=== PATIENT | male | born 1995 | race Caucasian/White ===

== ENCOUNTER 2017-04-02 09:33 | Inpatient (IN) | payer OTHER ==
[~2017-04-02] VITALS: Ht 177.8 cm; Wt 102.1 kg
[2017-04-02] VITALS (9 sets, daily range): BP systolic 136–158; BP diastolic 56–92
--- OUTSIDE RECORDS SUMMARY | 2017-04-02 10:01 | XMS REPORT ---
Author Walter Beckham Organization eClinical[employer] Address Unknown Phone Unavailable Care Team Providers Care Associate Professor Of Geography Name Role Phone Walter Falcon CP Unavailable Allergies, Adverse Reactions, Alerts Substance Reaction Event Type N.K.D.A. Info Not Available Non Drug Allergy Problems Problem Type Condition Code Onset Dates Condition Status Assessment Diabetes mellitus without mention of complication, type I [ juvenile type], not stated as uncontrolled 250.01 Active Problem Diabetes mellitus without mention of complication, type I [juvenile type], not stated as uncontrolled 250.01 Active Medications Medication Code System Code Instructions Start Date End Date Status Dosage OneTouch Delica Lancets NDC 0 1 four times daily December 16, 2012 hold til patient calls Glucagon (rDNA) [facility] [address]-11 1 mg Injection 1 daily May 27, 2014 as directed Pen [place] 10/03" NDC 0 31G X 8 MM 1 four times daily August 16, 2011 not defined NovoLog [facility] [address]-45 100 UNIT/ML Subcutaneous 30u, 36u, 38u Solution with meals Feb 11, 2013 Prescribed by EH ByrdCSupervised by Dr Rusty Sanabria OneTouch Ultra Blue NDC 0 In Vitro 1 four times daily November 13, 2013 per Walter Falcon PA-C supervised under Rusty Sanabria. Levemir [facility] [address]-07 100 UNIT/ML Subcutaneous 65 units in each leg at bedtime August 29, 2012 not defined Procedures Procedure Coding System Code Date Office Visit, Est Pt., Level 4 CPT-4 96004 August 24, 2014 GLYCATED HEMOGLOBIN TEST CPT-4 48374 August 24, 2014 Vital Signs Date/Time: August 24, 2014 Blood Pressure Systolic 120 mm Hg Weight 241 lbs Height 70 in BMI 34.58 Index Respiratory Rate 18 /min Cardiac Monitoring Heart Rate 80 /min Blood Pressure Diastolic 74 mm Hg BMIPercentile 98.9 % Wt Percentile 98.94 % Results No Known Results Summary Purpose eClinicalWorks Submission
--- OUTSIDE RECORDS SUMMARY | 2017-04-02 10:03 | XMS REPORT ---
Author Walter Beckham [facility] eClinicalWorks Address Unknown Phone Unavailable Care Team Providers Care Director Employee Safety And Health Name Role Phone Walter Falcon CP Unavailable Allergies, Adverse Reactions, Alerts Substance Reaction Event Type N.K.D.A. Info Not Available Non Drug Allergy Problems Problem Type Condition Code Onset Dates Condition Status Problem Diabetes mellitus without mention of complication, type I [juvenile type], not stated as uncontrolled 250.01 Active Assessment Diabetes type 1, uncontrolled E10.65 Active Problem Diabetes type 1, uncontrolled E10.65 Active Medications Medication Code System Code Instructions Start Date End Date Status Dosage NovoLog [facility] [address]-03 100 UNIT/ML Subcutaneous 30u, 36u, 38u Solution with meals Feb 11, 2013 Prescribed by GOMEZ Byrd-CSupervised by Dr Rusty Og [facility] [address]-56 100 UNIT/ML Subcutaneous 65 units in each leg at bedtime August 29, 2012 not defined BD Insulin Syringe [facility] 8290-006370 30G X 1/2 sub-q four times daily Dec as directed Glucagon (rDNA) [facility] [address]-92 1 mg Injection unconscious low blood sugar May 03, 2015 as directed OneTouch Delica Lancets NDC 0 1 four times daily December 16, 2012 [facility] patient calls Glucagon (rDNA) [facility] [address]-37 1 mg Injection 1 daily May 27, 2014 as directed OneTouch Verio NDC 0 1 In Vitro 4 times daily May 03, 2015 as directed Pen [place] 5/16" NDC 0 31G X 8 MM 1 four times daily August 16, 2011 not defined Procedures Procedure Coding System Code Date ASSAY THYROID STIM HORMONE CPT-4 96934 May 03, 2015 ASSAY OF URINE CREATININE CPT-4 01980 May 03, 2015 GLYCATED HEMOGLOBIN TEST IH CPT-4 59915 May 03, 2015 LIPID PANEL SO CPT-4 07149 May 03, 2015 MICROALBUMIN, QUANTITATIVE CPT-4 36744 May 03, 2015 Office Visit, Est Pt., Level 4 CPT-4 61598 May 03, 2015 COMPREHEN METABOLIC PANEL CPT-4 82048 May 03, 2015 Vital Signs Date/Time: May 03, 2015 Blood Pressure Systolic 120 mm Hg Ht Percentile 69.76 % Weight 257 lbs Height 71 in BMI 35.84 Index Respiratory Rate 16 /min Cardiac Monitoring Heart Rate 66 /min Blood Pressure Diastolic 72 mm Hg BMIPercentile 99.06 % Wt Percentile 99.42 % Results No Known Results Summary Purpose eClinicalWorks Submission
--- OUTSIDE RECORDS SUMMARY | 2017-04-02 10:03 | XMS REPORT ---
Author Author Walter Falcon Organization [employer] Address Unknown Phone Unavailable Care Team Providers Care Instructor Hairspring Name Role Phone Walter Falcon CP Unavailable Allergies No Known Allergies Problems Problem Type Condition Code Onset Dates Condition Status Problem Diabetes type 1, uncontrolled E10.65 Active Problem Diabetes mellitus without mention of complication, type I [juvenile type], not stated as uncontrolled 250.01 Active Problem Proteinuria R80.9 Active Medications Medication Code System Code Instructions Start Date End Date Status Dosage Humalog [facility] [address]-06 100 UNIT/ML Subcutaneous Prescribed by Walter Falcon PA-C. 30u, 36u, 38u with meals Results No Known Results Summary Purpose eClinicalWorks Submission
--- OUTSIDE RECORDS SUMMARY | 2017-04-02 10:03 | XMS REPORT ---
Author Walter Beckham [facility] eClinicalWorks Address Unknown Phone Unavailable Care Team Providers Care Coin Machine Supervisor Name Role Phone Walter Falcon CP Unavailable Allergies, Adverse Reactions, Alerts Substance Reaction Event Type N.K.D.A. Info Not Available Non Drug Allergy Problems Problem Type Condition ICD-9 Code Onset Dates Condition Status Assessment Diabetes [...] December 16, 2012 hold til patient calls Pen [place] 10/03" NDC 0 31G X 8 MM 1 four times daily August 16, 2011 not defined OneTouch Ultra Test [facility] [id number] TEST BLOOD FOUR TIMES A DAY NovoLog [facility] [address]-69 100 UNIT/ML Subcutaneous 30u, 36u, 38u Solution with meals Feb 11, 2013 Prescribed by EH ByrdCSupervised by Dr Rusty Og [facility] [address]-23 100 UNIT/ML Subcutaneous 65 units in each leg at bedtime August 29, 2012 not defined Glucagon (rDNA) [facility] [address]-50 1 mg Injection 1 daily May 27, 2014 as directed OneTouch Ultra Blue NDC 0 In Vitro 1 four times daily November 13, 2013 per Walter Falcon PA-C supervised under Rusty Sanabria. Procedures Procedure Coding System Code Date Office Visit, Est Pt., Level 4 CPT-4 82329 December 07, 2014 GLYCATED HEMOGLOBIN TEST CPT-4 77735 December 07, 2014 Vital Signs Date/Time: December 07, 2014 Blood Pressure Systolic 120 mm Hg Weight 238 lbs Height 70 in BMI 34.15 Index Respiratory Rate 16 /min Cardiac Monitoring Heart Rate 72 /min Blood Pressure Diastolic 60 mm Hg BMIPercentile 98.67 % Wt Percentile 98.74 % Results No Known Results Summary Purpose eClinicalWorks Submission
--- OUTSIDE RECORDS SUMMARY | 2017-04-02 10:03 | XMS REPORT ---
Author Author Walter Falcon Organization [employer] Address Unknown Phone Unavailable Care Team Providers Care Relay Engineer Name Role Phone Walter Falcon CP Unavailable Allergies No Known Allergies Problems Problem Type Condition Code Onset Dates Condition Status Problem Diabetes type 1, uncontrolled E10.65 Active Problem Diabetes mellitus without mention of complication, type I [juvenile type], not stated as uncontrolled 250.01 Active Problem Proteinuria R80.9 Active Assessment Proteinuria R80.9 Active Medications Medication Code System Code Instructions Start Date End Date Status Dosage Lisinopril [facility] [address]-43 2.5 MG Orally Once a day May 24, 2015 1 tablet Results No Known Results Summary Purpose eClinicalWorks Submission
--- OUTSIDE RECORDS SUMMARY | 2017-04-02 10:03 | XMS REPORT ---
Author Author Walter Falcon Organization [employer] Address Unknown Phone Unavailable Care Team Providers Care Laboratory Miller Name Role Phone Walter Falcon CP Unavailable Allergies No Known Allergies Problems Problem Type Condition Code Onset Dates Condition Status Problem Diabetes type 1, uncontrolled E10.65 Active Problem Diabetes mellitus without mention of complication, type I [juvenile type], not stated as uncontrolled 250.01 Active Problem Proteinuria R80.9 Active Medications No Known Medications Results No Known Results Summary Purpose eClinicalWorks Submission
--- OUTSIDE RECORDS SUMMARY | 2017-04-02 10:03 | XMS REPORT ---
Author Author Walter Falcon Organization eClinicalWorks Address Unknown Phone Unavailable Care Team Providers Care Construction Job Titles Name Role Phone Walter Falcon CP Unavailable Allergies No Known Allergies Problems Problem Type Condition ICD-9 Code Onset Dates Condition Status Problem Diabetes mellitus without mention of complication, type I [juvenile type], not stated as uncontrolled 250.01 Active Medications Medication Code System Code Instructions Start Date End Date Status Dosage BD Insulin Syringe [facility] [id number] 30G X 1/2" 0.5 ML sub-q four times daily Dec 30, 2014 as directed Results No Known Results Summary Purpose eClinicalWorks Submission
--- OUTSIDE RECORDS SUMMARY | 2017-04-02 10:03 | XMS REPORT ---
Author Author Walter Falcon Organization eClinicalWorks Address Unknown Phone Unavailable Care Team Providers Care Lathe Mechanic Name Role Phone Walter Falcon Unavailable Allergies No Known Allergies Problems Problem Type Condition Code Onset Dates Condition Status Problem Diabetes type 1, uncontrolled E10.65 Active Problem Diabetes mellitus without mention of complication, type I [juvenile type], not stated as uncontrolled 250.01 Active Problem Proteinuria R80.9 Active Medications Medication Code System Code Instructions Start Date End Date Status Dosage Levemir FlexTouch [facility] [address]-76 100 UNIT/ML Subcutaneous once daily. 65 units in each leg at bedtime Dec 31, 2015 130 units Darion Microlet Lancets [facility] [address]-95 1 subcutaneous four times daily Dec 31, 2015 to check blood sugars Glucagon (rDNA) [facility] [address]-45 1 MG Injection for severe hypoglycemia May 27, 2014 as directed NovoLog Flexpen [facility] [address]-75 100 UNIT/ML Subcutaneous three times daily with meals Dec 31, 2015 up to 40 units Darion Contour Next Test [facility] [address]-77 1 In Vitro four times daily Dec 31, 2015 to check blood sugars Results No Known Results Summary Purpose eClinicalWorks Submission
--- OUTSIDE RECORDS SUMMARY | 2017-04-02 10:03 | XMS REPORT ---
Author Author Walter Falcon [facility] eClinicalWorks Address Unknown Phone Unavailable Care Team Providers Care Tannery Gummer Name Role Phone Walter Falcon CP Unavailable Allergies, Adverse Reactions, Alerts Substance Reaction Event Type N.K.D.A. Info Not Available Non Drug Allergy Problems Problem Type Condition ICD-9 Code Onset Dates Condition Status Problem Other specified counseling V65.49 Inactive Problem Need for prophylactic vaccination and inoculation, Influenza V04.81 Inactive Problem Diabetes mellitus without mention of complication, type I [juvenile type], not stated as uncontrolled 250.01 Active Assessment Diabetes mellitus without mention of complication, type I [ juvenile type], not stated as uncontrolled 250.01 Active Assessment Flu vaccine need V04.81 Active Medications Medication Code System Code Instructions Start Date End Date Status Dosage Glucagon (rDNA) [facility] [address]-97 1 mg Injection 1 daily May 27, 2014 as directed OneTouch Ultra Blue NDC 0 In Vitro 1 four times daily November 13, 2013 per Walter Falcon PA-C supervised under Rusty Sanabria. OneTouch Delica Lancets NDC 0 1 four times daily December 16, 2012 hold til patient calls NovoLog [facility] [address]-14 100 UNIT/ML Subcutaneous 30u, 36u, 38u Solution with meals Feb 11, 2013 Prescribed by EH ByrdCSupervised by Dr Rusty Sanabria Pen [place] 5/16" NDC 0 31G X 8 MM 1 four times daily August 16, 2011 [place] [address]-80 100 UNIT/ML Subcutaneous 65 units in each leg at bedtime August 29, 2012 not defined Procedures Procedure Coding System Code Date VENIPUNCT, ROUTINE* CPT-4 25706 May 27, 2014 ASSAY OF URINE CREATININE CPT-4 52021 May 27, 2014 GLYCATED HEMOGLOBIN TEST IH CPT-4 87114 May 27, 2014 Office Visit, Est Pt., Level 4 CPT-4 78522 May 27, 2014 MICROALBUMIN, QUANTITATIVE CPT-4 32836 May 27, 2014 FLU VACCINE NO PRESERV 3 & > CPT-4 47911 May 27, 2014 IMMUNIZATION ADMIN CPT-4 34291 May 27, 2014 Vital Signs Date/Time: May 27, 2014 Blood Pressure Systolic 130 mm Hg Weight 243 lbs Height 70 in BMI 34.86 Index Respiratory Rate 18 /min Cardiac Monitoring Heart Rate 78 /min Blood Pressure Diastolic 72 mm Hg BMIPercentile 99.02 % Wt Percentile 99.06 % Results No Known Results Immunizations Vaccine Administration Date Influenza (split), 3 yrs and above May 27, 2014 Summary Purpose eClinicalWorks Submission
--- OUTSIDE RECORDS SUMMARY | 2017-04-02 10:03 | XMS REPORT ---
Author Author Walter Falcon [facility] Address [address] [id number] Care Team Providers Care Power Transformer Repair Supervisor Name Role Phone Walter Falcon Unavailable PROBLEMS Type Condition ICD9-CM Code [id number] Code Onset Dates Condition Status SNOMED Code Problem Proteinuria R80.9 Active 99648419 Problem Diabetes type 1, uncontrolled E10.65 Active 338811089 ALLERGIES Unknown Allergies SOCIAL HISTORY No smoking Hx information available PLAN OF CARE VITAL SIGNS MEDICATIONS Medication Instructions Dosage Frequency Start Date End Date Duration Status Lisinopril 2.5 MG Orally Once a day 1 tablet 24h May, Apr, 30 days Active RESULTS No Results PROCEDURES No Known procedures IMMUNIZATIONS No Known Immunizations
[2017-04-02] MEDS ORDERED: NS IV 1000 ML 1,000 ML IV ONE (10:04)
[2017-04-02] MEDS ORDERED: NS IV 1000 ML 1,000 ML IV STA (10:04)
--- OUTSIDE RECORDS SUMMARY | 2017-04-02 10:05 | XMS REPORT ---
Author Author Walter Falcon Organization eClinicalWorks Address Unknown Phone Unavailable Care Team Providers Care Online Marketing Specialist Name Role Phone Walter Falcon CP Unavailable Allergies No Known Allergies Problems Problem Type Condition Code Onset Dates Condition Status Problem Diabetes mellitus without mention of complication, type I [juvenile type], not stated as uncontrolled 250.01 Active Medications No Known Medications Results No Known Results Summary Purpose [employer] Submission
--- OUTSIDE RECORDS SUMMARY | 2017-04-02 10:05 | XMS REPORT ---
Author Author Walter Falcon [facility] Address [address] [id number] Care Team Providers Care Structural Layout Worker Name Role Phone Walter Falcon Unavailable PROBLEMS Type Condition ICD9-CM Code [id number] Code Onset Dates Condition Status SNOMED Code Problem Proteinuria R80.9 Active 30002801 Problem Diabetes type 1, uncontrolled E10.65 Active 542511552 ALLERGIES Unknown Allergies SOCIAL HISTORY No smoking Hx information available PLAN OF CARE VITAL SIGNS MEDICATIONS Medication Instructions Dosage Frequency Start Date End Date Duration Status NovoLog 100 UNIT/ML Subcutaneous three times daily with meals 30-40 units 30 days Active RESULTS No Results PROCEDURES No Known procedures IMMUNIZATIONS No Known Immunizations
--- OUTSIDE RECORDS SUMMARY | 2017-04-02 10:05 | XMS REPORT ---
Author Author Walter Falcon Organization [employer]Works Address Unknown Phone Unavailable Care Team Providers Care Ux Developer Name Role Phone Walter Falcon CP Unavailable [...]
--- OUTSIDE RECORDS SUMMARY | 2017-04-02 10:05 | XMS REPORT ---
Author Author Walter Falcon Organization [employer] Address Unknown Phone Unavailable Care Team Providers Care Rail Switch Operator Name Role Phone Walter Falcon Unavailable Allergies [...]
--- OUTSIDE RECORDS SUMMARY | 2017-04-02 10:05 | XMS REPORT ---
Author Author Walter Falcon Organization [employer]Works Address Unknown Phone Unavailable Care Team Providers Care Cattle Manager Name Role Phone Walter Falcon CP Unavailable Allergies No Known Allergies Problems Problem Type Condition Code Onset Dates Condition Status Problem Diabetes mellitus without mention of complication, type I [juvenile type], not stated as uncontrolled 250.01 Active Problem Diabetes type 1, uncontrolled E10.65 Active Medications No Known Medications Results No Known Results Summary Purpose eClinicalWorks Submission
[2017-04-02 10:10] LABS: BASOPHILS % (AUTO) 0 % (0-10); EOSINOPHILS % (AUTO) 0 % (0-10); LYMPHOCYTES # (AUTO) 0.8 X 10^3 (1.0-4.0); LYMPHOCYTES % (AUTO) 4 % (12-44); MEAN CORPUSCULAR HEMOGLOBIN 28 PG (25-34); MEAN CORPUSCULAR HGB CONC 34 G/DL (32-36); MEAN CORPUSCULAR VOLUME 80 FL (80-99); MEAN PLATELET VOLUME 12.3 FL (7.4-10.4); MONOCYTES # (AUTO) 0.7 X 10^3 (0.0-1.0); MONOCYTES % (AUTO) 3 % (0-12); NEUTROPHILS # (AUTO) 20.7 X 10^3 (1.8-7.8); NEUTROPHILS % (AUTO) 93 % (42-75); PLATELET COUNT 433 10^3/uL (130-400); RED BLOOD COUNT 6.15 10^6/uL (4.35-5.85); RED CELL DISTRIBUTION WIDTH 13.5 % (10.0-14.5); WHITE BLOOD COUNT 22.2 10^3/uL (4.3-11.0)
[2017-04-02] MEDS ORDERED: ONDANSETRON 4 MG/2 ML (SDV) Z0FRAN IVP ONE (10:15)
--- NOTE | 2017-04-02 10:17 | ED Abdominal Pain ---
General Stated Complaint: VOMITING,TYPE 1 DIABETIC Source of Information: Patient Exam Limitations: No Limitations History of Present Illness Time Seen By Provider: 10:15 Initial Comments Patient presents to ER by private conveyance with chief complaint of upper gastric abdominal pain, nausea and vomiting intractable. This started yesterday and has gotten worse today. He is not ill keep any fluids down. He has been drinking Gatorade this morning. He has a history of diabetes type 1 for which she uses about 3536 units NovoLog per meal and 60 units of Levemir in each leg daily. He is not taking any other medications or have any other significant medical history. He denies any surgical history of his abdomen. He is not having any diarrhea had a bowel movement yesterday which was regular and formed without blood. Is on no blood in his vomitus. He has had no shortness of breath cough, chest pain, upper respirations symptoms. He took his NovoLog this morning just prior to coming to the ER. He says his blood sugar was 4:30 6G Atty. just to the use of Gatorade. He is not taking his blood sugar yesterday. His last alcoholic drink [facility] about [facility] [place] [facility] [employer] [facility] He thinks the reason he is having abdominal pain and nausea vomiting is likely due to food or alcohol poisoning. He denies ever having DKA in the past. Allergies and Home Medications Allergies Coded Allergies: No Known Drug Allergies (Unverified , 04/02/17) Review of Systems Constitutional: No chills, No diaphoresis, No fever, No malaise EENTM: No Symptoms Reported Respiratory: Denies Cough, Denies Shortness of Air Cardiovascular: Denies Chest Pain, Denies Edema, Denies Lightheadedness Gastrointestinal: See HPI, Denies Abdomen Distended, Abdominal Pain, Denies Constipated, Denies Diarrhea, Nausea, Poor Fluid Intake, Vomiting Genitourinary: Denies Burning, Denies Discharge Musculoskeletal: No back pain, No joint pain Skin: No pruritus, No rash Psychiatric/Neurological: Denies Headache, Denies Numbness Past Ehqisxb-Lhoitr-Gnhpox Hx Patient Social History Alcohol Use: Occasionally Uses (last alcoholic drink was a day and a half ago.) Alcohol Beverage of Choice: Cheap Liquor (multiple to many to remember.) Recreational Drug Use: No Smoking Status: Never a Smoker Recent Foreign Travel: No Contact w/Someone Who Travel: No Physical Exam Vital Signs VS - Last 72 Hours, by Label 04/02/17 09:45 Temp 97.0 Pulse 86 Resp 14 B/P (MAP) 156/96 Pulse Ox 98 O2 Delivery Room Air Capillary Refill : General Appearance: WD/WN, mild distress HEENT: PERRL/EOMI, pharynx normal (oral mucosa is dry) Neck: non-tender, supple, normal inspection Respiratory: chest non-tender, lungs clear, normal breath sounds Cardiovascular: normal peripheral pulses, regular rate, rhythm, no edema Peripheral Pulses: 2+ Dorsalis Pedis (R), 2+ Left Dors-Pedis (L), 2+ Radial Pulses (R), 2+ Radial Pulses (L) Gastrointestinal: normal bowel sounds, soft, tenderness (epigastric region with negative for Palmer sign.) Extremities: normal range of motion, non-tender, normal inspection, normal capillary refill Neurologic/Psychiatric: alert, normal mood/affect, oriented x 3 Skin: normal color, warm/dry Focused Exam Evaluation Lactate Level Laboratory Tests 04/02/17 10:04: Lactic Acid Level 3.43*H Lactic Acid Level Laboratory Tests Test 04/02/17 10:04 Lactic Acid Level 3.43 MMOL/L (0.50-2.00) *H Progress/Results/Core Measures Results/Orders Lab Results Laboratory Tests Test 04/02/17 09:53 04/02/17 09:56 04/02/17 10:04 04/02/17 10:21 Range/Units Glucometer 496 *H 70-110 MG/DL White Blood Count 22.2 H 4.3-11.0 10^3/uL Red Blood Count 6.15 H 4.35-5.85 10^6/uL Hemoglobin 16.9 13.3-17.7 G/DL Hematocrit 49 40-54 % Mean Corpuscular Volume 80 80-99 FL Mean Corpuscular Hemoglobin 28 25-34 PG Mean Corpuscular Hemoglobin Concent 34 32-36 G/DL Red Cell Distribution Width 13.5 10.0-14.5 % Platelet Count 433 H 130-400 10^3/uL Mean Platelet Volume 12.3 H 7.4-10.4 FL Neutrophils (%) (Auto) 93 H 42-75 % Lymphocytes (%) (Auto) 4 L 12-44 % Monocytes (%) (Auto) 3 0-12 % Eosinophils (%) (Auto) 0 0-10 % Basophils (%) (Auto) 0 0-10 % Neutrophils # (Auto) 20.7 H 1.8-7.8 X 10^3 Lymphocytes # (Auto) 0.8 L 1.0-4.0 X 10^3 Monocytes # (Auto) 0.7 0.0-1.0 X 10^3 Eosinophils # (Auto) 0.0 0.0-0.3 10^3/uL Basophils # (Auto) 0.0 0.0-0.1 10^3/uL Neutrophils % (Manual) 91 % Lymphocytes % (Manual) 7 % Monocytes % (Manual) 2 % Blood Morphology Comment NORMAL Sodium Level 131 L 135-145 MMOL/L Potassium Level 4.2 3.6-5.0 MMOL/L Chloride Level 93 L 98-107 MMOL/L Carbon Dioxide Level 8 *L 21-32 MMOL/L Anion Gap 30 H 5-14 MMOL/L Blood Urea Nitrogen 25 H 7-18 MG/DL Creatinine 2.11 H 0.60-1.30 MG/DL Estimat Glomerular Filtration Rate 40 BUN/Creatinine Ratio 12 Glucose Level 570 *H 70-105 MG/DL Calcium Level 10.0 8.5-10.1 MG/DL Total Bilirubin 0.9 0.1-1.0 MG/DL Aspartate Amino Transf (AST/SGOT) 17 5-34 U/L Alanine Aminotransferase (ALT/SGPT) 30 0-55 U/L Alkaline Phosphatase 145 H 40-136 U/L Troponin I < 0.30 <0.30 NG/ML Total Protein 9.5 H 6.4-8.2 GM/DL Albumin 5.5 H 3.2-4.5 GM/DL Thyroid Stimulating Hormone (TSH) 0.79 0.35-4.94 UIU/ML Serum Alcohol < 10 <10 MG/DL Urine Color YELLOW Urine Clarity CLEAR Urine pH 5 5-9 Urine Specific [place] 1.025 H 1.016-1.022 Urine Protein 3+ H NEGATIVE Urine Glucose (UA) 4+ H NEGATIVE Urine Ketones 4+ H NEGATIVE Urine Nitrite NEGATIVE NEGATIVE Urine Bilirubin NEGATIVE NEGATIVE Urine Urobilinogen NORMAL NORMAL MG/DL Urine Leukocyte Esterase NEGATIVE NEGATIVE Urine RBC (Auto) 3+ H NEGATIVE Urine RBC 0-2 /HPF Urine WBC NONE /HPF Urine Squamous Epithelial Cells 0-2 /HPF Urine Crystals NONE /LPF Urine Bacteria NEGATIVE /HPF Urine Casts NONE /LPF Urine Mucus NEGATIVE /LPF Urine Culture Indicated NO Lactic Acid Level 3.43 *H 0.50-2.00 MMOL/L Urine Opiates Screen NEGATIVE NEGATIVE Urine Oxycodone Screen NEGATIVE NEGATIVE Urine Methadone Screen NEGATIVE NEGATIVE Urine Propoxyphene Screen NEGATIVE NEGATIVE Urine Barbiturates Screen NEGATIVE NEGATIVE Ur Tricyclic Antidepressants Screen NEGATIVE NEGATIVE Urine Phencyclidine Screen NEGATIVE NEGATIVE Urine Amphetamines Screen NEGATIVE NEGATIVE Urine Methamphetamines Screen NEGATIVE NEGATIVE Urine Benzodiazepines Screen NEGATIVE NEGATIVE Urine Cocaine Screen NEGATIVE NEGATIVE Urine Cannabinoids Screen NEGATIVE NEGATIVE Blood Gas Puncture Site R RAD Blood Gas Patient Temperature 97.4 Arterial Blood pH 7.23 *L 7.37-7.43 Arterial Blood Partial Pressure CO2 17 *L 35-45 MMHG Arterial Blood Partial Pressure O2 118 H 79-93 MMHG Arterial Blood HCO3 7 *L 23-27 MMOL/L Arterial Blood Total CO2 7.3 L 21.0-31.0 MMOL/L Arterial Blood Oxygen Saturation 99 94-100 % Arterial Blood Base Excess -19.8 L -2.5-2.5 MMOL/L Ren Test YES-POS Blood Gas Ventilator Setting NO Blood Gas Inspired Oxygen RA My Orders Orders - BERNADETTE GARCIA Arterial Blood Gas (04/02/17 10:04) Cbc With Automated Diff (04/02/17 10:04) Comprehensive Metabolic Panel (04/02/17 10:04) Drug Screen Stat (Urine) (04/02/17 10:04) Lactic Acid Analyzer (04/02/17 10:04) Thyroid Stimulating Hormone (04/02/17 10:04) Troponin I (04/02/17 10:04) Ua Culture If Indicated (04/02/17 10:04) Chest 1 View, Ap/Pa Only (04/02/17 10:04) Saline Lock/Iv-Start (04/02/17 10:04) Ns Iv 1000 Ml (Sodium Chloride 0.9%) (04/02/17 10:04) Ns Iv 1000 Ml (Sodium Chloride 0.9%) (04/02/17 10:04) Manual Differential (04/02/17 09:56) Ondansetron Injection (Zofran Injectio (04/02/17 10:15) Alcohol (04/02/17 10:17) Insulin (Regular) Human (Humulin R (Per (04/02/17 11:15) Medications Given in ED Current Medications Medications Dose Ordered Sig/Zo Route Start Time Stop Time Status Last Admin Dose Admin Insulin Human Regular 10 unit ONCE ONCE IV 04/02/17 11:15 04/02/17 11:16 DC 04/02/17 11:41 10 UNIT Ondansetron HCl 4 mg ONCE ONCE IVP 04/02/17 10:15 04/02/17 10:16 DC 04/02/17 10:36 4 MG Sodium Chloride 1,000 ml @ 0 mls/hr Q0M ONCE IV 04/02/17 10:04 04/02/17 10:06 DC 04/02/17 10:36 0 MLS/HR Vital Signs/I&O Vital Sign - Last 12Hours 04/02/17 09:45 Temp 97.0 Pulse 86 Resp 14 B/P (MAP) 156/96 Pulse Ox 98 O2 Delivery Room Air Departure Communication (Admissions) Time/Spoke to Admitting Phy: 11:[address] Medley: Discussed case, clinical history, imaging, labs and findings and he will see the patient in the ICU. He is okay with insulin protocol. Impression Impression: Primary Impression: DKA, type 1 Qualified Codes: E10.10 - Type 1 diabetes mellitus with ketoacidosis without coma Disposition: ADMITTED INPATIENT Condition: Improved Admissions Decision to Admit Reason: Admit from ER (General) Decision to Admit/Date: Apr 02, 2017 Time/Decision to Admit Time: 11:14 Departure-Patient Inst. Referrals: NO,LOCAL PHYSICIAN (PCP/Family) Primary Care Physician Copy Copies To 1: RADHA MEDLEY MD, TITUS J Apr 02, 2017 10:17
[2017-04-02 10:18] LABS: BILIRUBIN,URINE NEGATIVE (NEGATIVE); KETONES,URINE 4+ (NEGATIVE); LEUKOCYTE ESTERASE ,URINE NEGATIVE (NEGATIVE); NITRITE,URINE NEGATIVE (NEGATIVE); PH,URINE 5 (5-9); PROTEIN,URINE 3+ (NEGATIVE); UROBILINOGEN,URINE NORMAL (NORMAL)
[2017-04-02 10:28] LABS: ALANINE AMINOTRANSFERASE 30 U/L (0-55); ALBUMIN 5.5 GM/DL (3.2-4.5); ASPARTATE AMINO TRANSFERASE 17 U/L (5-34); BILIRUBIN,TOTAL 0.9 MG/DL (0.1-1.0); BLOOD UREA NITROGEN 25 MG/DL (7-18); BUN/CREATININE RATIO 12; CHLORIDE 93 MMOL/L (98-107); CREATININE SERUM 2.11 MG/DL (0.60-1.30); GFR ESTIMATED 40; POTASSIUM 4.2 MMOL/L (3.6-5.0); SODIUM 131 MMOL/L (135-145); TOTAL PROTEIN 9.5 GM/DL (6.4-8.2)
[2017-04-02 10:29] LABS: SQUAMOUS EPITHELIAL CELL,UR 0-2 /HPF
[2017-04-02 10:32] LABS: ABG BASE EXCESS -19.8 MMOL/L (-2.5-2.5); ABG OXYGEN SATURATION 99 % (94-100); ABG PO2 118 MMHG (79-93); ABG TCO2 7.3 MMOL/L (21.0-31.0)
[2017-04-02 10:35] LABS: LYMPHOCYTES % (MANUAL) 7 %; NEUTROPHILS % (MANUAL) 91 %
[2017-04-02 10:37] LABS: ABG HCO3 7 MMOL/L (23-27); ABG PCO2 17 MMHG (35-45); ABG PH 7.23 (7.37-7.43); ALLENS TEST YES-POS
[2017-04-02 10:38] LABS: PATIENT TEMP 97.4
[2017-04-02 10:39] LABS: ANION GAP 30 MMOL/L (5-14); GLUCOSE 570 MG/DL (70-105)
[2017-04-02 10:46] LABS: THYROID STIMULATING HORMONE 0.79 UIU/ML (0.35-4.94); TROPONIN I < 0.30 NG/ML (<0.30)
[2017-04-02] MEDS ORDERED: inSUlin (REGULAR) HUMAN 1 UNIT/0.01 ML (CHARGE PER UNIT) IV ONE (11:15)
--- NOTE | 2017-04-02 11:17 | Diagnostic Imaging Report ---
AP view of the chest. INDICATION: Vomiting. FINDINGS: The lungs are clear. The heart is normal. No effusion or pneumothorax. The mediastinum and isacc appear unremarkable. IMPRESSION: Unremarkable exam. Dictated by: Dictated on workstation # [id number]
[2017-04-02] MEDS ORDERED: inSUlin REGULAR TPN/DRIP ONLY 250 UNITS in NORMAL SALINE 250 ML IV SCH (12:15)
[2017-04-02] MEDS ORDERED: NS IV 1000 ML 1,000 ML IV SCH ×2 (12:45→13:30)
[2017-04-02] MEDS ORDERED: REGULAR inSUlin DRIP 250 UNITS/NS 250 ML IV SCH ×2 (13:30)
[2017-04-02] MEDS ORDERED: fentaNYL INJECTION 100 MCG/2 ML AMP IV PRN (13:30)
[2017-04-02] MEDS ORDERED: INFLUENZA TRIvalent 2017-2018 0.5 ML/45 MCG SYR IM ONE (13:45)
[2017-04-02] MEDS: 1/2 NS W/KCL 20 MEQ/L 1,000 ML IV SCH ×3 (13:49→23:59)
[2017-04-02] MEDS ORDERED: INSU100I29 SQ (13:51)
[2017-04-02] MEDS ORDERED: INSU100I14 SQ (13:51)
[2017-04-02] MEDS: D5 1/2 NS W/KCL 20 MEQ/L 1,000 ML IV SCH ×2 (14:02→18:59)
[2017-04-02] MEDS: ONDANSETRON 4 MG/2 ML (SDV) Z0FRAN IV PRN ×2 (14:26→20:10)
--- NOTE | 2017-04-02 14:35 | History & Physical-Hospitalist ---
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 He has been a type I diabetic since age 12. On Sunday he imbibed in entirely too much liquid spirits. He undoubtedly missed insulin doses and also did not eat. He attempted to rehydrate on Sunday using Gatorade. He was not aware that it contained sugar. He arrived at the emergency room this morning feeling terrible with nausea. He reeked of acetone. He normally sees an hide examiner in [place]. He states that he saw him last on [facility]. He believes his last hemoglobin A1c was in the low 7s. Source: patient Exam Limitations: no limitations Date Seen 04/02/17 Time Seen by Provider: 14:30 Attending Physician Steven Medley MD PCP No,Local Physician Referring Physician Date of Admission Apr 02, 2017 at 11:25 Home Medications & Allergies Home Medications Reviewed patient Home Medication Reconciliation Form Allergies Allergies Coded Allergies No Known Drug Allergies ([id number]/13/17) Past Kmssnmv-Lgrvok-Avitrj Hx Patient Social History Alcohol Use: Occasionally Uses Number of Drinks Today: 0 Alcohol Beverage of Choice: Cheap Liquor Recreational Drug Use: No Smoking Status: Never a Smoker Physical Abuse Screen: No Sexual Abuse: No Recent Foreign Travel: No Contact w/other who traveled: No Recent Hopitalizations: No Recent Infectious Disease Expo: No Immunizations Up To Date Date of Pneumonia Vaccine: Apr 02, 2013 Seasonal Allergies Seasonal Allergies: No Surgeries No Respiratory No Cardiovascular No Neurological No Genitourinary No Gastrointestinal No Musculoskeletal No Endocrine History of Endocrine Disorders: Yes Endocrine Disorders: Diabetes, Insulin dep Are Your Blood Sugars Over 250: No (advises bgl is usually 150) HEENT History of HEENT Disorders: No Cancer No Psychosocial History of Psychiatric Problem: No Integumentary History of Skin or Integumenta: No Blood Transfusions History of Blood Disorders: No Review of Systems Constitutional: see HPI EENTM: no symptoms reported, blurred vision Respiratory: no symptoms reported Cardiovascular: no symptoms reported Gastrointestinal: nausea, vomiting Genitourinary: frequency Musculoskeletal: no symptoms reported Skin: no symptoms reported Psychiatric/Neurological: No Symptoms Reported Physical Exam Physical Exam Vital Signs Vital Sign - Last 12Hours 04/02/17 09:45 Temp 97.0 Pulse 86 Resp 14 B/P (MAP) 156/96 Pulse Ox 98 O2 Delivery Room Air Capillary Refill : Less Than 3 Seconds General Appearance: Other (we had an alert 22-year-old in mild distress who reeked of acetone) Eyes: Bilateral Eye Normal Inspection HEENT: Normal ENT Inspection Neck: Normal Inspection Respiratory: Chest Non Tender, Lungs Clear, Normal Breath Sounds, No Accessory Muscle Use, No Respiratory Distress Gastrointestinal: Normal Bowel Sounds, No Organomegaly, No Pulsatile Mass, Non Tender, Soft Back: No CVA Tenderness Extremity: Normal Capillary Refill, Normal Inspection, Normal Range of Motion, Non Tender, No Calf Tenderness, No Pedal Edema Neurologic/Psychiatric: Alert, Oriented x3, No Motor/Sensory Deficits, Normal Mood/Affect Skin: Normal Color Lymphatic: No Adenopathy Results Results/Procedures Lab Laboratory Tests 04/02/17 09:56 Assessment/Plan Admission Diagnosis Diabetic ketoacidosis. 2.type I diabetes mellitus. Assessment and Plan High flow fluids. IV insulin drip STEVEN MEDLEY MD Apr 02, 2017 14:35
[2017-04-02 14:42] LABS: CALCIUM 9.4 MG/DL (8.5-10.1); CREATININE SERUM 1.54 MG/DL (0.60-1.30)
[2017-04-02 15:58] LABS: CALCIUM 8.9 MG/DL (8.5-10.1); CREATININE SERUM 1.47 MG/DL (0.60-1.30); POTASSIUM 4.2 MMOL/L (3.6-5.0)
[2017-04-02] MEDS ORDERED: DEXTROSE 10% IV SOLUTION 1,000 ML IV ONE (18:23)
[2017-04-02 18:33] LABS: ANION GAP 11 MMOL/L (5-14); BLOOD UREA NITROGEN 16 MG/DL (7-18); BUN/CREATININE RATIO 12; CALCIUM 9.1 MG/DL (8.5-10.1); CARBON DIOXIDE 17 MMOL/L (21-32); CHLORIDE 107 MMOL/L (98-107); CREATININE SERUM 1.35 MG/DL (0.60-1.30); GFR ESTIMATED > 60; GLUCOSE 115 MG/DL (70-105); POTASSIUM 3.9 MMOL/L (3.6-5.0); SODIUM 135 MMOL/L (135-145)
[2017-04-02] MEDS ORDERED: DEXTROSE 10% IV SOLUTION 1,000 ML IV PRN (18:45)
[2017-04-02 22:17] LABS: ANION GAP 12 MMOL/L (5-14); BLOOD UREA NITROGEN 14 MG/DL (7-18); BUN/CREATININE RATIO 10; CALCIUM 9.4 MG/DL (8.5-10.1); CARBON DIOXIDE 17 MMOL/L (21-32); CHLORIDE 107 MMOL/L (98-107); CREATININE SERUM 1.41 MG/DL (0.60-1.30); GFR ESTIMATED > 60; GLUCOSE 174 MG/DL (70-105); POTASSIUM 3.8 MMOL/L (3.6-5.0); SODIUM 136 MMOL/L (135-145)
[2017-04-02] MEDS ORDERED: inSUlin DETERMIR 1 UNIT/0.01 ML (LEVEMIR) CHARGE PER UNIT SQ SCH (23:00)
[2017-04-02] MEDS ORDERED: METOCLOPRAMIDE INJ 10 MG/2 ML (REGLAN) IVP ONE (23:15)
[2017-04-03] VITALS (12 sets, daily range): BP systolic 118–145; BP diastolic 52–79
[2017-04-03] MEDS: D5 1/2 NS W/KCL 20 MEQ/L 1,000 ML IV SCH
[2017-04-03] MEDS: LACTATED RINGERS 1,000 ML IV SCH ×2 (01:22→11:56)
[2017-04-03] MEDS ORDERED: METOCLOPRAMIDE INJ 10 MG/2 ML (REGLAN) IV ONE (02:15)
[2017-04-03] MEDS ORDERED: LACTATED RINGERS 1,000 ML IV SCH (02:15)
[2017-04-03 04:52] LABS: BASOPHILS % (AUTO) 0 % (0-10); EOSINOPHILS % (AUTO) 0 % (0-10); LYMPHOCYTES # (AUTO) 2.2 X 10^3 (1.0-4.0); LYMPHOCYTES % (AUTO) 10 % (12-44); MEAN CORPUSCULAR HEMOGLOBIN 28 PG (25-34); MEAN CORPUSCULAR HGB CONC 35 G/DL (32-36); MEAN CORPUSCULAR VOLUME 80 FL (80-99); MEAN PLATELET VOLUME 11.9 FL (7.4-10.4); MONOCYTES # (AUTO) 1.7 X 10^3 (0.0-1.0); MONOCYTES % (AUTO) 8 % (0-12); NEUTROPHILS # (AUTO) 18.6 X 10^3 (1.8-7.8); NEUTROPHILS % (AUTO) 83 % (42-75); PLATELET COUNT 325 10^3/uL (130-400); RED BLOOD COUNT 5.43 10^6/uL (4.35-5.85); RED CELL DISTRIBUTION WIDTH 13.6 % (10.0-14.5); WHITE BLOOD COUNT 22.6 10^3/uL (4.3-11.0)
[2017-04-03 05:21] LABS: ANION GAP 16 MMOL/L (5-14); BLOOD UREA NITROGEN 13 MG/DL (7-18); BUN/CREATININE RATIO 10; CALCIUM 9.6 MG/DL (8.5-10.1); CARBON DIOXIDE 16 MMOL/L (21-32); CHLORIDE 104 MMOL/L (98-107); CREATININE SERUM 1.33 MG/DL (0.60-1.30); GFR ESTIMATED > 60; GLUCOSE 235 MG/DL (70-105); MAGNESIUM 2.1 MG/DL (1.8-2.4); PHOSPHORUS 2.1 MG/DL (2.3-4.7); POTASSIUM 3.6 MMOL/L (3.6-5.0); SODIUM 136 MMOL/L (135-145)
[2017-04-03] MEDS: inSUlin (REGULAR) HUMAN 1 UNIT/0.01 ML (CHARGE PER UNIT) SC SCH ×2 (05:33→13:13)
[2017-04-03] MEDS: inSUlin ASPART (NovoLOG) 1 UNIT/0.01 ML (CHARGE PER UNIT) SC SCH ×2 (05:33→13:13)
[2017-04-03] MEDS ORDERED: MAGNESIUM 1 GM/100 ML IVPB 100 ML IV SCH (06:00)
[2017-04-03] MEDS ORDERED: KCL 20 MEQ TAB (K-DUR) PO ONE ×2 (06:00→09:00)
[2017-04-03] MEDS ORDERED: POTASSIUM CL 10MEQ/50ML IVPB 50 ML IV SCH (06:00)
[2017-04-03] MEDS ORDERED: KCL 20 MEQ TAB (K-DUR) PO SCH (06:00)
[2017-04-03 07:22] LABS: CARBON DIOXIDE 8 MMOL/L (21-32)
--- NOTE | 2017-04-03 07:43 | Diagnostic Imaging Report ---
EXAM: CHEST 1 VIEW, AP/PA ONLY INDICATION: ICU care management. Nausea and vomiting. COMPARISON: Chest radiograph 04/02/2017. FINDINGS: Normal heart size and pulmonary vascularity. No focal pulmonary opacity, pleural effusion or pneumothorax. Osseous structures are unremarkable. No significant change. IMPRESSION: No acute cardiopulmonary findings. Dictated by: Dictated on workstation # [id number]
--- NOTE | 2017-04-03 11:55 | Progress Note-Hospitalist ---
Standard Progress Note Progress Notes/Assess & Plan Date Seen 04/03/17 Time Seen by Provider: 11:15 Diagnosis Diabetic ketoacidosis. 2.type I diabetes mellitus. Assess & Plan/Chief Complaint The patient looks and feels much better today. He was able to eat some breakfast. There is no longer a smell of acetone. The blood sugars have been repeatedly below 200. He is ready for discharge. Physical exam: Lungs are clear to auscultation. There is no tachypnea. CV is regular without murmur. Abdomen is soft bowel sounds are present. Impression: Diabetic ketoacidosis resolved. 2.type I diabetes mellitus Plan: Discharge to return to usual routine Labs Laboratory Tests 04/02/17 09:56 04/02/17 13:55 04/02/17 15:30 04/02/17 18:00 04/02/17 21:56 04/03/17 04:00 Final Diagnosis Diabetic ketoacidosis. 2.diabetes mellitus type I RADHA MEDLEY MD Apr 03, 2017 11:55
--- NOTE | 2017-04-03 11:57 | Discharge Instructions ---
Discharge Instructions Patient Instructions Patient Instructions: Resume usual diet and activity. Insulin products as previously. As previously stated you may compensate for alcohol in moderation, weekend program was clearly excess Activity & Diet Discharge Diet: ADA Diet Activity as Tolerated: Yes RADHA MEDLEY MD Apr 03, 2017 11:57
== END 2017-04-03 13:25 | disposition home or self-care (01) | DRG 639 ==
LOC: ER 09:37 → ICU 11:25
PROVIDERS: ADMIT Internal Medicine; ATTEND Internal Medicine
DX: E10.10 Type 1 diabetes mellitus with ketoacidosis without coma (principal); Z79.4 Long term (current) use of insulin
CPT/HCPCS: 36415; 71010; 80048; 80053; 80306; 80320; 81000; 82805; 82962; 83605; 83735; 84100; 84443; 84484; 85007; 85025; 85027